=== PATIENT | female | born 1990 | race Caucasian/White ===

== ENCOUNTER 2017-01-13 17:20 | Emergency (ER) | payer BC, MEDICARE, MEDICAID ==
--- NOTE | 2017-01-13 17:33 | EDM.PDOC ---
ED HPI GENERAL MEDICAL PROBLEM - General Chief Complaint: Lower Extremity Injury/Pain Stated Complaint: FELL IN CAMPER Time Seen by Provider: 01/13/17 17:25 Source of Information: Reports: Patient, EMS, Family, RN Notes Reviewed History Limitations: Reports: No Limitations - History of Present Illness INITIAL COMMENTS - FREE TEXT/NARRATIVE: Patient complained that she fell yesterday with injury to left hip and knee. Today she has experienced increased pain and now is unable to bear weight. Denies any other injury. Location: Reports: Lower Extremity, Left Quality: Reports: Ache Severity: Severe Improves with: Reports: None Worsens with: Reports: None Associated Symptoms: Reports: No Other Symptoms Left Hip Pain Score (Numeric/FACES): 10 - Related Data Allergies Allergy/AdvReac Type Severity Reaction Status Date / Time No Known Allergies Allergy Verified 01/13/17 17:34 Home Meds: Home Meds Acetaminophen [Tylenol Arthritis] 1,300 mg PO ASDIRECTED PRN 01/13/17 [History] Acetaminophen [Tylenol Extra Strength] 1,000 mg PO ASDIRECTED PRN 01/13/17 [ History] medroxyPROGESTERone Acetate [Depo-Subq Provera 104] 104 mg SQ ASDIRECTED [History] Review of Systems - Review of Systems Review Of Systems: ROS reveals no pertinent complaints other than HPI. ED EXAM, GENERAL - Physical Exam Exam: See Below Exam Limited By: No Limitations General Appearance: Alert, WD/WN, No Apparent Distress Nose: Normal Inspection, Normal Mucosa, No Blood Head: Atraumatic, Normocephalic Neck: Normal Inspection, Supple, Non-Tender, Full Range of Motion Respiratory/Chest: No Respiratory Distress, Lungs Clear, Normal Breath Sounds, No Accessory Muscle Use, Chest Non-Tender Cardiovascular: Normal Peripheral Pulses (at bilateral lower extremities. ) GI/Abdominal: Normal Bowel Sounds, Soft, Non-Tender, No Organomegaly, No Distention, No Abnormal Bruit, No Mass (Female) Exam: Deferred Rectal (Female) Exam: Deferred Back Exam: Normal Inspection, Full Range of Motion, NT Extremities: Other (Left hip with decreased range of motion. No visible swelling , bruising or deformity. Left knee with increased range of motion, swelling with moderate effusion. No visible bruising or deformity. ) Neurological: Alert, Oriented, CN II-XII Intact, Normal Cognition, Normal Gait, Normal Reflexes, No Motor/Sensory Deficits Psychiatric: Normal Affect, Normal Mood Skin Exam: Warm, Dry, Intact, Normal Color, No Rash Course - Vital Signs Last Recorded V/S: Last Vital Signs Temp 36.6 C 01/13/17 19:30 Pulse 67 01/13/17 19:30 Resp 18 01/13/17 19:30 BP 126/62 01/13/17 19:30 Pulse Ox 97 01/13/17 19:30 - Orders/Labs/Meds Meds: Medications Discontinued Medications Generic Name Dose Route Start Last Admin Trade Name Meeta PRN Reason Stop Dose Admin Hydrocodone Bitart/Acetaminophen 1 tab 01/13/17 18:30 01/13/17 18:33 [place] 325-10 Mg PO 01/13/17 18:31 1 tab ONETIME ONE Administration Hydrocodone Bitart/Acetaminophen Confirm 01/13/17 19:30 01/13/17 19:35 [place] 325-10 Mg Administered 01/13/17 19:31 Not Given Dose 4 tab .ROUTE .STK-MED ONE Hydrocodone Bitart/Acetaminophen 4 tab 01/13/17 19:30 [place] 325-10 Mg PO 01/13/17 19:31 .STK-MED ONE - Radiology Interpretation Free Text/Narrative:: X-ray hip per rad report shows no fracture. X-ray left knee: per rad report reveals no fracture. Some chronic premature arthritic changes. Departure - Departure Time of Disposition: 19:15 Disposition: Home, Self-Care 01 Condition: Fair Clinical Impression: Knee effusion, left Sprain of left hip Qualifiers: Encounter type: initial encounter Qualified Code(s): S73.102A - Unspecified sprain of left hip, initial encounter Sprain of left knee Qualifiers: Encounter type: initial encounter Involved ligament of knee: unspecified ligament Qualified Code(s): S83.92XA - Sprain of unspecified site of left knee, initial encounter - Discharge Information Instructions: Knee Sprain, [id number], Knee Effusion, [id number] Referrals: PCP,Not In Area [Primary Care Provider] - Forms: ED Department Discharge Additional Instructions: RX: Hydrocodone/APAP 5mg/325mg. Use crutches and knee immobilizer as needed for discomfort for 7 to 10 days. Rest, ice and elevated left knee. Follow up with your orthopedic doctor in 7 to 10 days for recheck. Return to ER if worse at any time.
[2017-01-13] MEDS ORDERED: Acetaminophen/HYDROcodone 325-10 MG Tab PO ONE ×2 (18:30→19:30)
[2017-01-13] MEDS ORDERED: Acetaminophen/HYDROcodone 325-10 MG Tab ONE (19:30)
[2017-01-13 19:31] VITALS: BP 126/62
== END 2017-01-13 19:40 | disposition home or self-care (01) ==
LOC: DL.ED 17:20
DX: S83.92XA Sprain of unspecified site of left knee, initial encounter (principal); S73.102A Unspecified sprain of left hip, initial encounter; W19.XXXA Unspecified fall, initial encounter
CPT/HCPCS: 73502; 73562; 99283; A9270